=== PATIENT | female | born 2000 | race Caucasian/White ===

== ENCOUNTER 2021-10-25 01:50 | Emergency (ER) | payer OTHER, SELFPAY | END 2021-10-25 02:19 | disposition home or self-care (01) | LOC: ERS 01:50 | DX: Z77.21 Contact with and (suspected) exposure to potentially hazardous body fluids (principal) | CPT/HCPCS: 99283 ==

== ENCOUNTER 2021-12-04 01:10 | Emergency (ER) | payer SELFPAY | END 2021-12-04 02:57 | disposition home or self-care (01) | LOC: ERS 01:10 | DX: R55 Syncope and collapse (principal); I49.8 Other specified cardiac arrhythmias | CPT/HCPCS: 93005 ==